=== PATIENT | male | born 1980 | race Hispanic/Latino ===

== ENCOUNTER 2019-08-10 19:57 | Emergency (ER) | payer OTHER ==
[2019-08-10] MEDS ORDERED: IBUPROFEN 400 MG TABLET ONE (20:49)
[2019-08-10 21:01] LABS: APPEARANCE,URINE Clear (CLEAR); BILIRUBIN,URINE Negative (NEGATIVE); COLOR,URINE Yellow (YELLOW); GLUCOSE, URINE (UA) Negative (NEGATIVE); KETONES,URINE Negative (NEGATIVE); LEUKOCYTE ESTERASE ,URINE Negative (NEGATIVE); NITRATE,URINE Negative (NEGATIVE); OCCULT BLOOD,URINE Large (NEGATIVE); PROTEIN,URINE Negative (NEGATIVE); UROBILINOGEN,URINE 0.2 mg/dL (0.2-1.0)
[2019-08-10 21:10] LABS: BACTERIA,URINE None Seen /HPF (None Seen); MUCUS,URINE Few LPF (None Seen); SQUAMOUS EPITHELIAL CELL,UR 0-2 /HPF (0-2); WBC,URINE 0-1 /HPF (0-1)
[2019-08-10] MEDS ORDERED: SODIUM CHLORIDE 0.9% 1000ML 1,000 ML IV ONE ×2 (21:31→23:24)
[2019-08-10 21:40] LABS: BASOPHILS % (AUTO) 0.5 % (0.0-5.0); EOSINOPHILS % (AUTO) 0.1 % (0.0-8.0); HEMATOCRIT 47.6 % (42-54); LYMPHOCYTES % (AUTO) 10.1 % (21.0-51.0); MEAN CORPUSCULAR HEMOGLOBIN 29.7 pg (27.0-33.0); MEAN CORPUSCULAR HGB CONC 33.7 g/dL (32.0-36.0); MEAN CORPUSCULAR VOLUME 88.2 fL (79-99); MONOCYTES % (AUTO) 5.7 % (3.0-13.0); NEUTROPHILS % (AUTO) 83.6 % (40.0-77.0); PLATELET COUNT (AUTO) 311 K/uL (130-400); RED CELL DISTRIBUTION WIDTH 13.8 % (11.0-15.5); WHITE BLOOD COUNT (AUTO) 20.1 K/uL (4.8-10.8)
[2019-08-10 22:04] LABS: POTASSIUM 3.5 mmol/L (3.5-5.1)
[2019-08-10 22:09] LABS: ALBUMIN 4.2 g/dL (3.5-5.0); BILIRUBIN,TOTAL 0.4 mg/dL (0.2-1.0); TOTAL PROTEIN, SERUM 7.8 g/dL (6.0-8.3)
[2019-08-10] MEDS ORDERED: TAMSULOSIN HCL 0.4 MG CAP.ER.24H ONE (23:35)
[2019-08-10] MEDS ORDERED: METOCLOPRAMIDE 10 MG/2 ML VIAL ONE (23:35)
[2019-08-11] MEDS ORDERED: KETOROLAC TROMETHAMINE 15MG/ML ONE (00:02)
== END 2019-08-11 00:20 | disposition home or self-care (01) ==
LOC: EDH 19:57
DX: N20.1 Calculus of ureter (principal); N23 Unspecified renal colic
CPT/HCPCS: 36415; 74176; 76770; 80053; 81001; 83605; 85025; 87088; 96374; 99285; J1885; J2765; J7030 ×2

== ENCOUNTER 2021-06-04 23:36 | Emergency (ER) | payer SELFPAY ==
[~2021-06-04] VITALS: Ht 175.3 cm; Wt 56.7 kg
[2021-06-05 00:01] VITALS: BP 122/87
[2021-06-05 00:17] LABS: BASOPHILS % (AUTO) 0.3 % (0.0-5.0); EOSINOPHILS % (AUTO) 0.1 % (0.0-8.0); HEMATOCRIT 48.7 % (42-54); MEAN CORPUSCULAR HEMOGLOBIN 29.6 pg (27.0-33.0); MEAN CORPUSCULAR HGB CONC 33.7 g/dL (32.0-36.0); MEAN CORPUSCULAR VOLUME 87.9 fL (79-99); MONOCYTES % (AUTO) 3.5 % (3.0-13.0); NEUTROPHILS % (AUTO) 83.8 % (40.0-77.0); PLATELET COUNT (AUTO) 270 K/uL (130-400); RED BLOOD CELL COUNT(AUTO) 5.54 MIL/uL (4.50-6.20); RED CELL DISTRIBUTION WIDTH 13.2 % (11.0-15.5); WHITE BLOOD COUNT (AUTO) 16.7 K/uL (4.8-10.8)
[2021-06-05 00:39] LABS: APPEARANCE,URINE Clear (CLEAR); BILIRUBIN,URINE Negative (NEGATIVE); GLUCOSE, URINE (UA) Negative (NEGATIVE); KETONES,URINE Negative (NEGATIVE); LEUKOCYTE ESTERASE ,URINE Trace (NEGATIVE); NITRATE,URINE Negative (NEGATIVE); OCCULT BLOOD,URINE Large (NEGATIVE); PROTEIN,URINE POS 1+ mg/dL (NEGATIVE); UROBILINOGEN,URINE 0.2 mg/dL (0.2-1.0)
[2021-06-05 00:44] LABS: COLOR,URINE PINK (YELLOW)
[2021-06-05 00:45] LABS: ALBUMIN 4.2 g/dL (3.5-5.0); BILIRUBIN,TOTAL 0.3 mg/dL (0.2-1.0); TOTAL PROTEIN, SERUM 8.1 g/dL (6.0-8.3)
[2021-06-05 00:54] LABS: RBC,URINE TNTC /HPF (0-1)
[2021-06-05 01:03] LABS: BACTERIA,URINE None Seen /HPF (None Seen); SQUAMOUS EPITHELIAL CELL,UR Few /HPF (0-2)
[2021-06-05 01:07] LABS: POTASSIUM 3.6 mmol/L (3.5-5.1)
[2021-06-05 01:22] VITALS: BP 139/80
[2021-06-05] MEDS ORDERED: CIPR-278 PO (02:17)
[2021-06-05] MEDS ORDERED: TAMS-1 PO (02:17)
[2021-06-05] MEDS ORDERED: LEVOFLOXACIN 500 MG TABLET PO SCH (02:30)
[2021-06-05 02:35] VITALS: BP 129/72
[2021-06-05] MEDS ORDERED: LEVOFLOXACIN 500 MG TABLET ONE (02:36)
== END 2021-06-05 02:48 | disposition home or self-care (01) ==
LOC: EDH 23:36
DX: N20.0 Calculus of kidney (principal); N13.4 Hydroureter; R31.9 Hematuria, unspecified; F41.9 Anxiety disorder, unspecified
CPT/HCPCS: 36415; 74176; 80053; 81001; 85025; 87088

== ENCOUNTER 2024-04-22 21:05 | Emergency (ER) | payer BC ==
[~2024-04-22] VITALS: Ht 175.3 cm; Wt 54.0 kg
[~2024-04-22 21:05] MED LIST: CEPH500B PO; CIPR-278 PO; ONDA-243 PO; TAMS-1 PO
[2024-04-22 21:29] LABS: APPEARANCE,URINE CLOUDY (CLEAR); BILIRUBIN,URINE NEGATIVE (NEGATIVE); COLOR,URINE LIGHT-BROWN (YELLOW); GLUCOSE, URINE (UA) NEGATIVE (NEGATIVE); KETONES,URINE NEGATIVE (NEGATIVE); LEUKOCYTE ESTERASE ,URINE 75 Leu/uL (NEGATIVE); NITRATE,URINE NEGATIVE (NEGATIVE); OCCULT BLOOD,URINE LARGE (NEGATIVE); PROTEIN,URINE 50 mg/dL (NEGATIVE); UROBILINOGEN,URINE 0.2 mg/dL (0.2-1.0)
[2024-04-22 21:30] LABS: ADD UA MICROSCOPIC YES
[2024-04-22 21:32] LABS: BACTERIA,URINE RARE /HPF (None Seen); CALCIUM OXALATE CRYSTALS,UR RARE /LPF (None Seen); RBC,URINE TNTC /HPF (0-1); UNCLASSIFIED CRYSTAL 15 /HPF (None Seen); WBC,URINE 26-50 /HPF (0-1)
[2024-04-22 22:02] LABS: BASOPHILS # (AUTO) 0.04 K/uL (0.00-0.20); BASOPHILS % (AUTO) 0.4 % (0.0-5.0); EOSINOPHILS # (AUTO) 0.05 K/uL (0.00-0.70); EOSINOPHILS % (AUTO) 0.5 % (0.0-8.0); HEMATOCRIT 46.9 % (42-54); IMMATURE GRANULOCYTE ABSOLUTE 0.04 K/uL (0-1); LYMPHOCYTES # (AUTO) 1.8 K/uL (1.0-4.8); LYMPHOCYTES % (AUTO) 16.5 % (21.0-51.0); MEAN CORPUSCULAR HEMOGLOBIN 29.6 pg (27.0-33.0); MEAN CORPUSCULAR HGB CONC 32.8 g/dL (32.0-36.0); MONOCYTES # (AUTO) 0.6 K/uL (0.1-1.0); MONOCYTES % (AUTO) 5.5 % (3.0-13.0); NEUTROPHILS # (AUTO) 8.5 K/uL (1.8-7.7); NEUTROPHILS % (AUTO) 76.7 % (40.0-77.0); PLATELET COUNT (AUTO) 273 K/uL (130-400); RED BLOOD CELL COUNT(AUTO) 5.21 MIL/uL (4.50-6.20); RED CELL DISTRIBUTION WIDTH 13.2 % (11.0-15.5); WHITE BLOOD COUNT (AUTO) 11.1 K/uL (4.8-10.8)
[2024-04-22 22:09] LABS: POTASSIUM 3.9 mmol/L (3.5-5.1)
[2024-04-22] MEDS: CEFTRIAXONE 1G VIAL IVPB ONE (23:06)
[2024-04-22] MEDS: TAMSULOSIN HCL 0.4 MG CAP.ER.24H PO ONE ×2 (23:07→23:19)
[2024-04-22] MEDS: 0.9%NACL 1000ML 1,000 ML IV ONE (23:07)
[2024-04-23 01:08] VITALS: BP 133/78; PULSE 77; RESP 18; O2SAT 100
[2024-04-23] MEDS ORDERED: IBUP-2077 PO (01:13)
[2024-04-23] MEDS ORDERED: TAMS-1 PO (01:13)
[2024-04-23] MEDS ORDERED: CEPH500B PO (01:13)
== END 2024-04-23 01:28 | disposition home or self-care (01) ==
LOC: EDH 21:05
DX: N13.2 Hydronephrosis with renal and ureteral calculous obstruction (principal); R31.9 Hematuria, unspecified; N39.0 Urinary tract infection, site not specified; Z88.8 Allergy status to other drugs, medicaments and biological substances
CPT/HCPCS: 99284; 74176; 96374; 80048; 85025; 87086; 81001; 36415; J7030; J0696

== ENCOUNTER 2025-01-26 19:30 | Emergency (ER) | payer BC ==
[~2025-01-26] VITALS: Ht 175.3 cm; Wt 48.1 kg
[~2025-01-26 19:30] MED LIST changes: +IBUP-2077 PO; -TAMS-1 PO; +TAMS-55 PO
--- NOTE | 2025-01-26 19:53 | ERN ---
ED Note History of Present Illness Stated Complaint: KIDNEY STONES Chief Complaint: Painful Urination Time Seen by MD: 19:33 Dictation: PATIENT IS A 44-YEAR-OLD MALE COMING IN TODAY WITH COMPLAINTS OF PAINFUL URINATION WHEN HE SAW BLOOD CLOT THIS AFTERNOON. STATES LAST WEEK HE STARTED HAVING BILATERAL FLANK PAIN WITHOUT NAUSEA VOMITING AND STATES THE PAIN WAS MOVING TO HIS LOWER QUADRANTS AND PENIS. HE STATES HE DID NOT SEEK ANY HEALTH CARE UNTIL THIS AFTERNOON WHEN HE HAD A BLOOD CLOT AND THOUGHT HE MIGHT BE HAVING A STONE. HE DOES NOT SEE YOUR PRIMARY CARE DOCTOR NO PAIN AT THIS TIME Allergies: Coded Allergies: tamsulosin (Unverified Allergy, Unknown, TACHYCARDIA, 06/05/21) Home Meds Active Scripts Cephalexin Monohydrate (Keflex) 500 Mg Cap, 500 MG PO BID for 7 Days, #28 CAP Prov:OSMEL ARIZA MD 04/23/24 Ibuprofen (Ibuprofen 800 mg Tab) 800 Mg Tab, 800 MG PO Q8H PRN for fever or pain for 30 Days, #30 TAB 0 Refills Prov:OSMEL ARIZA MD 04/23/24 Tamsulosin HCl (Flomax) 0.4 Mg Cap.er.24h, 0.4 MG PO DAILY, #[address] Prov:OSMEL ARIZA MD 04/23/24 Cephalexin Monohydrate (Keflex) 500 Mg Cap, 500 MG PO TID for 3 Days, #9 CAP 0 Refills Prov:ED WADSWORTH MD 01/18/22 Ondansetron (Ondansetron Odt) 4 Mg Tab.rapdis, 4 MG PO TIDP PRN for NAUSEA/VOMITING, #12 TAB 0 Refills Prov:ED WADSWORTH MD 01/18/22 Tamsulosin HCl (Flomax) 0.4 Mg Cap.er.24h, 0.8 MG PO DAILY, #30 CAPSULE.DR 0 Refills Prov:YULISA ESCALERA MD 06/05/21 Ciprofloxacin HCl (Cipro) 500 Mg Tablet, 1 TAB PO BID for 10 Days, #20 TAB 0 Refills Prov:YULISA ESCALERA MD 06/05/21 Past Medical History Past Medical History: No Pertinent History Surgical History: None Social History: Other RN Note Reviewed/Agreed w/PFSH: Yes Review of System Dictation CONSTITUTIONAL: NEGATIVE EXCEPT FOR HPI HEAD/FACE: NEGATIVE EXCEPT FOR HPI EENT: NEGATIVE EXCEPT FOR HPI RESPIRATORY: NEGATIVE EXCEPT FOR HPI GASTROINTESTINAL/ABDOMINAL: NEGATIVE EXCEPT FOR HPI GENITOURINARY: NEGATIVE EXCEPT FOR HPI HEMATURIA WITH DYSURIA MUSCULOSKELETAL: NEGATIVE EXCEPT FOR HPI INTEGUMENTARY: NEGATIVE EXCEPT FOR HPI NEUROLOGICAL/PSYCH: NEGATIVE EXCEPT FOR HPI HEMATOLOGIC/LYMPHATIC: NEGATIVE EXCEPT FOR HPI ALL SYSTEMS NEGATIVE, EXCEPT NOTED ABOVE. 13 POINT REVIEW OF SYSTEMS ASSESSED AND ALL NEGATIVE EXCEPT FOR ABOVE. Initial Vital Sign VS Vital Signs Date Time Temp Pulse Resp B/P (MAP) Pulse Ox O2 Delivery O2 Flow Rate FiO2 01/26/25 19:35 98.1 112 20 159/91 99 Room Air 01/26/25 19:55 0 21 Physical Exam Dictation VITAL SIGNS REVIEWED GENERAL APPEARANCE: ALERT, ORIENTED X 3, NO ACUTE DISTRESS, WELL DEVELOPED, NOURISHED. 0/10 PAIN HEAD AND FACE: NON-TRAUMATIC. EYES: PERRL, PINK CONJUNCTIVAS, EYELID NO TRAUMA, ANTERIOR CHAMBER WITH ARCUS SENILIS. EARS: PINNAS INTACT AND NO SIGNS OF TRAUMA OR ERYTHEMA EAR CANALS CLEAR AND NO DISCHARGE TM NO ERYTHEMA NOSE: NO DISCHARGE, NO BLEEDING. OROPHARYNX: MOUTH NORMAL, TONGUE PINK, PHARYNX CLEAR,NO ERYTHEMA, TONSILS NO EXUDATES, NO ABSCESSES NOTED, MUCOUS MEMBRANE MOIST NECK: SUPPLE, NON-TENDER, NO THYROMEGALY, NO MASSES, NO JVD, NO BRUITS BREAST:DEFERRED CHEST:NO TENDERNESS, NO CREPITUS, NO PARADOXICAL MOVEMENT, NO RETRACTIONS LUNGS:CLEAR, WELL-VENTILATED, SYMMETRIC, NO RALES, NO WHEEZING, NO RHONCHI, NO STRIDOR, GOOD BREATH SOUNDS BILATERALLY HEART: REGULAR RATE, REGULAR RHYTHM, NO MURMUR, NO GALLOPS VASCULAR: NO PERIPHERAL EDEMA, ABDOMEN: SOFT, POSITIVE BOWEL SOUNDS, NONDISTENDED, NO GUARDING, NONTENDER, NO REBOUND, NO MASSES NO HEPATOMEGALY, NO SPLENOMEGALY, NO EATON'S SIGN, NO HERNIAS. NEGATIVE CVAT BILATERALLY RECTAL: DEFERRED GENITAL: DEFERRED NEUROLOGICAL: NORMAL SPEECH, MOTOR FUNCTION INTACT, SENSORY FUNCTION INTACT MUSCULOSKELETAL: NECK NONTENDER, FULL RANGE OF MOTION, BACK NONTENDER, FULL RANGE OF MOTION, EXTREMITIES: NONTENDER, FULL RANGE OF MOTION SKIN: COLOR PINK, DRY, NO TURGOR, NO RASH, NO LACERATIONS, NO ABRASIONS, NO CONTUSIONS. LYMPHATIC: DEFERRED Results (Laboratory/Radiology) Laboratory/Radiology Laboratory Tests Test 01/26/25 19:36 01/26/25 19:50 Urine Color COLORLESS (YELLOW) Urine Appearance CLEAR (CLEAR) Urine pH 6.5 (5.0-8.0) Urine Specific [place] 1.004 (1.001-1.031) Urine Protein NEGATIVE mg/dL (NEGATIVE) Urine Glucose (UA) NEGATIVE mg/dL (NEGATIVE) Urine Ketones NEGATIVE mg/dL (NEGATIVE) Urine Occult Blood LARGE (NEGATIVE) H Urine Nitrate NEGATIVE (NEGATIVE) Urine Bilirubin NEGATIVE mg/dL (NEGATIVE) Urine Urobilinogen 0.2 mg/dL (0.2-1.0) Urine Leukocyte Esterase NEGATIVE Duncan/uL Urine RBC 2-5 /HPF (0-1) H Urine WBC 2-5 /HPF (0-1) H Urine Bacteria None /HPF (None Seen) White Blood Count 10.8 K/uL (4.8-10.8) Red Blood Count 5.06 MIL/uL (4.50-6.20) Hemoglobin 15.0 g/dL (14.0-18.0) Hematocrit 44.7 % (42-54) Mean Corpuscular Volume 88.3 fL (79-99) Mean Corpuscular Hemoglobin 29.6 pg (27.0-33.0) Mean Corpuscular Hemoglobin Concent 33.6 g/dL (32.0-36.0) Red Cell Distribution Width 13.3 % (11.0-15.5) Platelet Count 287 K/uL (130-400) Mean Platelet Volume 10.0 fL (7.5-10.5) Immature Granulocyte % (Auto) 0.3 % (0-1) Neutrophils (%) (Auto) 64.7 % (40.0-77.0) Lymphocytes (%) (Auto) 25.2 % (21.0-51.0) Monocytes (%) (Auto) 8.7 % (3.0-13.0) Eosinophils (%) (Auto) 0.7 % (0.0-8.0) Basophils (%) (Auto) 0.4 % (0.0-5.0) Neutrophils # (Auto) 7.0 K/uL (1.8-7.7) Lymphocytes # (Auto) 2.7 K/uL (1.0-4.8) Monocytes # (Auto) 0.9 K/uL (0.1-1.0) Eosinophils # (Auto) 0.08 K/uL (0.00-0.70) Basophils # (Auto) 0.04 K/uL (0.00-0.20) Absolute Immature Granulocyte (auto 0.03 K/uL (0-1) Nucleated Red Blood Cells 0.0 % (0.0-0.19) Sodium Level 136 mmol/L (136-145) Potassium Level 3.5 mmol/L (3.5-5.1) Chloride Level 103 mmol/L (101-111) Carbon Dioxide Level 26 mmol/L (21-32) Blood Urea Nitrogen 16 mg/dL (7-18) Creatinine 1.0 mg/dL (0.5-1.3) Glomerular Filtration Rate Calc 94 mL/min (>90) Random Glucose 103 mg/dL (70-105) Total Calcium 8.4 mg/dL (8.5-10.1) L 2031/PATIENT HAS SEVERAL LARGE STONES IN THE LEFT KIDNEY NONE HER OBSTRUCTIVE. ENLARGED, 13 MM PATIENT WILL BE GIVEN LEVAQUIN AND FOLLOW UP WITH DR. ALICIA DACOSTA. Labs Reviewed?: Yes ED Course ED Course Orders Procedure Category Date Status Time Cbc With Differential LAB 01/26/25 Complete 19:35 Urinalysis Profile LAB 01/26/25 Complete 19:35 Basic Metabolic Panel LAB 01/26/25 Complete 19:35 Us Renal Sonogram US 01/26/25 Resulted 19:35 Levofloxacin 500mg PHA 01/26/25 Verified Tab (Levaquin 500mg T 21:00 Vital Signs Date Time Temp Pulse Resp B/P (MAP) Pulse Ox O2 Delivery O2 Flow Rate FiO2 01/26/25 19:55 98.2 95 20 155/85 98 Room Air* 0 21 01/26/25 19:35 98.1 112 20 159/91 99 Room Air Medical Decision Making MDM MEDICAL DISCHARGE MAKING BASED ON BASIC LABS AND RENAL ULTRASOUND. PATIENT HAS ACUTE HEMATURIA WITH LEFT KIDNEY STONES. ALSO ENLARGED PROSTATE. DISCHARGED HOME WITH FLOMAX AND IBUPROFEN TOLD FOLLOW UP WITH /UROLOGY DX & DISP Disposition: Discharge Departure Impression: Primary Impression: Kidney stones Additional Impressions: Hematuria, Benign enlargement of prostate Condition: Stable Scripts Levofloxacin (Levofloxacin) 500 Mg Tablet 1 TAB PO DAILY for 10 Days, #10 TAB 0 Refills Prov: TATIANA PÉREZ IT INFRASTRUCTURE MANAGER 01/26/25 Ibuprofen (Ibuprofen) 600 Mg Tablet 600 MG PO Q6H PRN for PAIN, #30 TAB Prov: TATIANA PÉREZ IT INFRASTRUCTURE MANAGER 01/26/25 Additional Instructions: FOLLOW-UP WITH PRIMARY CARE PROVIDER IN 1 TO 2 DAYS. TAKE MEDICATIONS DIRECTED HERE IN THE EMERGENCY ROOM. OKAY TO CONTINUE HOME MEDICATIONS UNLESS OTHERWISE DISCUSSED DURING YOUR VISIT IN THE EMERGENCY ROOM TODAY. RETURN TO YOUR NEAREST EMERGENCY ROOM IF SYMPTOMS WORSEN OR IF THERE IS NO IMPROVEMENT. CALL 911 IF YOU NEED IMMEDIATE ASSISTANCE. TAKE TYLENOL OR MOTRIN [id number] NEEDED AND IF NO CONTRAINDICATIONS ARE PRESENT. INCREASE ORAL HYDRATION. A WOUND CULTURE OR URINE CULTURE WAS ORDERED HERE IN THE EMERGENCY ROOM DEPARTMENT PLEASE FOLLOW-UP WITH PRIMARY CARE PROVIDER AND ADVISE THEM TO GET REPEAT PORTS FROM OUR FACILITY. IF YOU HAD ANY SANAM WRAP/SPLINTS THAT WERE APPLIED HERE, PLEASE DO NOT REMOVE THEM UNTIL YOU SEE YOUR PRIMARY CARE OR SPECIALTY. TAKE ANTIBIOTICS DIRECTED UNTIL GONE. , INCREASE YOUR WATER INTAKE. , CALL U ROLOGIST FOR AN APPOINTMENT TOMORROW OR THE NEXT DAY. Referrals: OSMEL ESTEVES M.D. (PCP) SAURABH AVRGAS MD Time of Disposition: 20:35 I have reviewed the case, and I agree with, Diagnosis and Plan TATIANA PÉREZ NP January 26, 2025 19:52
[2025-01-26 19:55] VITALS: BP 155/85; PULSE 95; RESP 20; TEMP 98.3; O2SAT 98
[2025-01-26 19:55] LABS: APPEARANCE,URINE CLEAR (CLEAR); BILIRUBIN,URINE NEGATIVE (NEGATIVE); COLOR,URINE COLORLESS (YELLOW); GLUCOSE, URINE (UA) NEGATIVE (NEGATIVE); KETONES,URINE NEGATIVE (NEGATIVE); LEUKOCYTE ESTERASE ,URINE NEGATIVE Leu/uL (NEGATIVE); NITRATE,URINE NEGATIVE (NEGATIVE); OCCULT BLOOD,URINE LARGE (NEGATIVE); PH,URINE 6.5 (5.0-8.0); PROTEIN,URINE NEGATIVE (NEGATIVE); UROBILINOGEN,URINE 0.2 mg/dL (0.2-1.0)
[2025-01-26 20:03] LABS: BASOPHILS # (AUTO) 0.04 K/uL (0.00-0.20); BASOPHILS % (AUTO) 0.4 % (0.0-5.0); EOSINOPHILS # (AUTO) 0.08 K/uL (0.00-0.70); EOSINOPHILS % (AUTO) 0.7 % (0.0-8.0); HEMATOCRIT 44.7 % (42-54); IMMATURE GRANULOCYTE ABSOLUTE 0.03 K/uL (0-1); LYMPHOCYTES # (AUTO) 2.7 K/uL (1.0-4.8); LYMPHOCYTES % (AUTO) 25.2 % (21.0-51.0); MEAN CORPUSCULAR HEMOGLOBIN 29.6 pg (27.0-33.0); MEAN CORPUSCULAR HGB CONC 33.6 g/dL (32.0-36.0); MEAN CORPUSCULAR VOLUME 88.3 fL (79-99); MONOCYTES # (AUTO) 0.9 K/uL (0.1-1.0); MONOCYTES % (AUTO) 8.7 % (3.0-13.0); NEUTROPHILS % (AUTO) 64.7 % (40.0-77.0); PLATELET COUNT (AUTO) 287 K/uL (130-400); RED BLOOD CELL COUNT(AUTO) 5.06 MIL/uL (4.50-6.20); RED CELL DISTRIBUTION WIDTH 13.3 % (11.0-15.5); WHITE BLOOD COUNT (AUTO) 10.8 K/uL (4.8-10.8)
[2025-01-26 20:11] LABS: POTASSIUM 3.5 mmol/L (3.5-5.1)
[2025-01-26 20:13] LABS: ADD UA MICROSCOPIC YES
[2025-01-26 20:21] LABS: MUCUS,URINE RARE LPF (None Seen)
--- NOTE | 2025-01-26 20:31 | HMCIMG ---
ULTRASOUND RENAL COMPLETE INDICATION: Right flank pain radiating to the lower abdomen. TECHNIQUE: Routine ultrasound of the kidneys and urinary bladder with grayscale and color Doppler imaging was performed in real-time, and subsequently made available for review. COMPARISON: 01/18/2022 FINDINGS: The right kidney measures 10.1 x 5.1 x 3.3 cm. No abnormal mass demonstrated. No evidence for hydronephrosis or shadowing stone. The left kidney measures 9.1 x 4.5 x 5.0 cm. No abnormal mass demonstrated. Multiple echogenic shadowing stones within the left kidney, largest of which measures up to 0.6 cm. Urinary bladder appears normal. Both ureteral jets demonstrated. Prostate gland = 13.3 cc. IMPRESSION: Nonobstructing left nephrolithiasis.
[2025-01-26] MEDS ORDERED: IBUP-2070 PO (20:36)
[2025-01-26] MEDS ORDERED: LEVO-70 PO (20:36)
[2025-01-26] MEDS: levoFLOXacin 500 MG TABLET PO ONE (20:38)
== END 2025-01-26 20:47 | disposition home or self-care (01) ==
LOC: EDH 19:30
DX: N20.0 Calculus of kidney (principal); R31.9 Hematuria, unspecified; N40.0 Benign prostatic hyperplasia without lower urinary tract symptoms; Z79.899 Other long term (current) drug therapy
CPT/HCPCS: 36415; 76770; 80048; 81001; 85025; 99284